=== PATIENT | female | born 1955 | race Caucasian/White ===

== ENCOUNTER 2017-11-04 12:21 | Emergency (ER) | payer BC, OTHER ==
[2017-11-04 12:26] VITALS: BP 150/71; PULSE 71; TEMP 98.1; BMI 46.0
--- NOTE | 2017-11-04 13:22 | PDOC ---
History of Present Illness - General Chief Complaint: Injury Stated Complaint: FALL Time Seen by Provider: 11/04/17 13:10 History Source: Patient Exam Limitations: No Limitations - History of Present Illness Initial Comments: 11/04/17 13:18 CHIEF COMPLAINT: Right shoulder injury HISTORY OF PRESENT ILLNESS: Patient is a 62-year-old female history of non- insulin-dependent diabetes, medication names are unknown patient reports tripping on a curb, fell and felt her right shoulder pop . Now unable to move right arm. Denies hitting her head or any other complaints. ALLERGIES: Sulfa REVIEW OF SYSTEMS: GENERAL/CONSTITUTIONAL: Awake alert and oriented HEAD, EYES, EARS, NOSE AND THROAT: No change in vision. No facial edema, no bruising. NO active bleeding. Nares intact. RESPIRATORY: No cough, wheezing, or hemoptysis. CARDIAC: Denies chest pain, no shortness of breathe. MUSCULOSKELETAL: No spinal point tenderness, decreased range of motion to right shoulder with anterior deformity NO CVA tenderness. [No] lateral neck pain. GI/: Denies abdominal pain, no nausea or vomiting, no bloody stool, no Hematuria. SKIN : No erythema or bruising noted. No abrasion or lacerations. NEUROLOGIC: No loss of consciousness, no numbness or tingling. PHYSICAL EXAM: GENERAL: Awake and alert and oriented x3. EYES: The pupils are equal, round, and reactive to light, with clear, conjunctiva. Good extraocular movement. No nystagmus NOSE: No nasal trauma . Midface stable MOUTH: Teeth intact. EARS: The ear canals and tympanic membranes are normal without trauma. No drainage. NECK: No Lower cervical C-spine tenderness, no pain with chin to chest. CHEST: The lungs are clear without crackles, or wheezes. No subcutaneous emphysema. No crepitus. HEART: Heart is regular rhythm, with normal S1 and S2, no murmurs. ABDOMEN: The abdomen is soft and nontender with normal bowel sounds. There is no guarding or rebound. MUSCULOSKELETAL: No spinal point tenderness. No bruising or erythema. Pelvis stable. EXTREMITIES: Right anterior deformity to right shoulder SKIN: Edema to right hand and right anterior shoulder, No abrasions or lacerations. Past History - Past Medical History Allergies/Adverse Reactions: Allergies Allergy/AdvReac Type Severity Reaction Status Date / Time Sulfa (Sulfonamide Allergy Verified 11/04/17 12:27 Antibiotics) Home Medications: Ambulatory Orders Atorvastatin Ca [Lipitor] 20 mg PO HS 11/04/17 Dapagliflozin Propanediol [Farxiga] 5 mg PO 11/04/17 Furosemide 20 mg PO ASDIR 11/04/17 Oxycodone HCl/Acetaminophen [Percocet 5-325 mg Tablet] 2 tab PO Q4H #36 tablet MDD 12 11/04/17 Sitagliptin Phosphate [Januvia -] 100 mg PO ASDIR 11/04/17 metFORMIN HCL [Glucophage -] 500 mg PO BID 11/04/17 COPD: No Diabetes: Yes - Suicide/Smoking/Psychosocial Hx Smoking History: Never smoked Information on smoking cessation initiated: No Hx Alcohol Use: No Drug/Substance Use Hx: No Substance Use Type: None *Physical Exam - Vital Signs Last Vital Signs Temp Pulse Resp BP Pulse Ox 98.1 F 71 19 150/71 98 11/04/17 12:24 11/04/17 12:24 11/04/17 12:24 11/04/17 12:24 11/04/17 12:24 ED Treatment Course - RADIOLOGY Radiology Studies Ordered: Category Date Time Status SHOULDER-RIGHT [RAD] Stat Radiology 11/04/17 13:14 Ordered Medical Decision Making - Medical Decision Making 11/04/17 13:22 A/P: Patient with right anterior deformity to shoulder status post fall, sent to x-ray to rule out dislocation 11/04/17 14:02 Patient with comminuted humeral head fracture, I have paged Dr. Ely awaiting call back to Percocet ordered. 11/04/17 15:47 I have spoken to Dr. Jeter patient has 2 options a. Sling arm, pain medication , follow-up with orthopedics allowed to heal on its own patient may have decreased mobility. B. she may need shoulder replacement. Arm sling placed on as per patient's request we will give copy of x-ray patient lives in [place] and will follow up with somebody in [place]. Will discharge with Percocet. Strict follow-up. *DC/Admit/Observation/Transfer Diagnosis at time of Disposition: Comminuted fracture of humerus Qualifiers: Encounter type: initial encounter Fracture type: closed Fracture alignment: displaced Laterality: right - Discharge Dispostion Disposition: HOME Condition at time of disposition: Stable Admit: No - Prescriptions Prescriptions: Oxycodone HCl/Acetaminophen [Percocet 5-325 mg Tablet] 2 tab PO Q4H #36 tablet MDD 12 - Referrals Referrals: Haim Ely MD [Staff Physician] - - Patient Instructions Printed Discharge Instructions: How to Use a Sling Additional Instructions: 1. Please return to the emergency department with any redness, swelling, increased pain, or any other concerns. 2. Keep sling on. 3. Please follow up in the office of Dr. Ely or other MD within a week if pain persists. 4. No weightbearing 5. Ice and elevate when at rest. - Post Discharge Activity Forms/Work/School Notes: Back to Work
== END 2017-11-04 15:59 | disposition home or self-care (01) ==
LOC: JERFT 12:21
DX: S42.291A Other displaced fracture of upper end of right humerus, initial encounter for closed fracture (principal); W10.1XXA Fall (on)(from) sidewalk curb, initial encounter; Y93.01 Activity, walking, marching and hiking; Y92.480 Sidewalk as the place of occurrence of the external cause; Y99.8 Other external cause status
CPT/HCPCS: 73030-TC-RT-FY; 99281-25